=== PATIENT | male | born 1985 | race Caucasian/White ===

== ENCOUNTER 2024-02-13 15:27 | Emergency (ER) | payer BC, OTHER ==
[2024-02-13 16:04] VITALS: BP 193/135; PULSE 84
== END 2024-02-13 17:30 | disposition home or self-care (01) ==
LOC: MW.ED 15:27
DX: M25.522 Pain in left elbow (principal); Z88.0 Allergy status to penicillin; Z75.8 Other problems related to medical facilities and other health care
CPT/HCPCS: 73080-26-LT; 73080-LT; 99283